=== PATIENT | female | born 1980 | race African-American/Black ===

== ENCOUNTER 2017-03-14 19:34 | Emergency (ER) | payer OTHER ==
[2017-03-14 19:40] VITALS: BP 113/75
[2017-03-14 19:42] VITALS: BMI 22.2
--- NOTE | 2017-03-14 20:16 | DR.FBACK ---
HPI - Time Seen Time seen: 20:00 - PCP Primary Care Physician: EBEN - Complaint Chief Complaint Doctor Comments: Patient admits to a history of back pain; she is on hydrocodone and muscle relaxants for back. The stomach pain is acute. Denies fever or vomiting. Chief Complaint:: PAIN IN LOWER ABD , LOWER BACK AND RIGHT FLANK FOR THE LAST 2 DAYS., DENIES ANY URINARY ISSUES. CONSTANT PAIN. Self Treatment fo Chief Complaint: MOTRIN AT HOME - Source History Provided: Patient - Mode of Arrival Mode of Arrival: Ambulatory - Timing Onset of Chief Complaint: 03/12/17 PMH - PMH Past Medical History: No Past Surgical History: No Surgical History: Unknown - Family History History of Family Medical Conditions: Yes Family Medical History: Cancer - Social History Type of Tobacco Use: Cigarettes Alcohol Use: None Do you use any recreational Drugs:: No Lives With: Family Lives Where: Home - infectious screening Have you traveled outside the country in the last 6 months?: No Isolation: Standard ROS - Review of Systems Eyes: No Symptoms Reported ENTM: No Symptoms Reported Respiratoy: No Symptoms Reported Cardiovascular: No Symptoms Reported Gastrointestinal/Abdominal: No Symptoms Reported Genitourinary: No Symptoms Reported Neurological: No Symptoms Reported Musculoskeletal: No Symptoms Reported Integumentary: No Symptoms Reported Hematologic/Lymphatic: No Symptoms Reported Endocrine: No Symptoms Reported Psychiatric: No Symptoms Reported All Other Systems: Reviewed and Negative PE - Vitals Vital Signs: Temp Pulse Resp BP Pulse Ox 03/14/17 19:36 98.0 F 75 16 113/75 98 05/08/16 08:40 114/69 - General Limitations: No Limitations General Appearance: Alert, In No Apparent Distress - Head Head Exam: Normal Inspection, Atraumatic - Eyes Eye exam: Normal Appearance, PERRL, EOMI - ENT ENT Exam: Normal Exam - Chest Chest Inspection: Normal Inspection - Respiratory Respiratory Exam: Normal Lung Sounds Bilat Respiratory Exam: Bilateral Clear to Auscultation - Cardiovascular Cardiovascular Exam: Regular Rate, Normal Rhythm - Abdominal Exam Abdominal Exam: Normal Inspection, Normal Bowel Sounds Abdominal Tenderness: negative: RUQ, RLQ, LUQ, LLQ, Epigastrium, Suprapubic, Diffuse, Mild, Moderate, Severe, Other - Genitourinary External Exam: Female: Deferred : Speculum Exam (Female): Deferred : Bimanual Exam (female): Deferred - Extremities Extremities Exam: Normal Inspection, Full ROM - Back Back Exam: Normal Inspection - Neurological Neurological Exam: Alert, Oriented X3, CN II-XII Intact - Psychiatric Psychiatric Exam: Normal Affect - Skin Skin Exam: Warm, Dry, Intact ROR - Labs Reviewed Laboratory Results Reviewed?: Yes (UA: negative) Laboratory: Specimen Type Clean catch urine 03/14/17 20:17 Urine Color Yellow (YELLOW) 03/14/17 20:17 Urine Appearance Clear (CLEAR) 03/14/17 20:17 Urine pH 8.0 (5.0 - 8.0) 03/14/17 20:17 Ur Specific [place] 1.015 (1.000-1.030) 03/14/17 20:17 Urine Protein Negative (NEGATIVE) 03/14/17 20:17 Urine Glucose (UA) Negative (NEGATIVE) 03/14/17 20:17 Urine Ketones Negative (NEGATIVE) 03/14/17 20:17 Urine Occult Blood Negative (NEGATIVE) 03/14/17 20:17 Urine Nitrite Negative (NEGATIVE) 03/14/17 20:17 Urine Bilirubin Negative (NEGATIVE) 03/14/17 20:17 Urine Urobilinogen Normal (NORMAL) 03/14/17 20:17 Ur Leukocyte Esterase Negative (NEGATIVE) 03/14/17 20:17 Urine RBC None seen /HPF (NEGATIVE) 03/14/17 20:17 Urine WBC 0-3 /HPF (NEGATIVE) 03/14/17 20:17 Ur Squamous Epith Cells Few /HPF (NEGATIVE) 03/14/17 20:17 Urine Bacteria Trace /HPF (NEGATIVE) 03/14/17 20:17 Ur Culture Indicated? No/not indicated 03/14/17 20:17 - XRAY XRAY Interpreted by: Radiologist (KUB: negative) - Diagnosis Discharge Problem: Abdominal pain Qualifiers: Abdominal location: lower abdomen, unspecified Qualified Code(s): R10.30 - Lower abdominal pain, unspecified - Discharge Plan Condition: Stable - Follow ups/Referrals Follow ups/Referrals: Rosario TREADWELL [Primary Care Provider] - 3 days - Instructions
[2017-03-14 20:28] LABS: BILIRUBIN,URINE NEGATIVE (NEGATIVE); BLOOD/HEMOGLOBIN,URINE NEGATIVE (NEGATIVE); GLUCOSE, URINE NEGATIVE (NEGATIVE); KETONES,URINE NEGATIVE (NEGATIVE); LEUKOCYTE ESTERASE ,URINE NEGATIVE (NEGATIVE); NITRITES,URINE NEGATIVE (NEGATIVE); PROTEIN,URINE NEGATIVE (NEGATIVE); UROBILINOGEN,URINE NORMAL (NORMAL)
[2017-03-14 20:33] LABS: APPEARANCE,URINE CLEAR (CLEAR); BACTERIA,URINE TRACE /HPF (NEGATIVE); COLOR,URINE YELLOW (YELLOW); RBC,URINE NONE SEEN /HPF (NEGATIVE); SQUAMOUS EPITHELIAL CELL,UR FEW /HPF (NEGATIVE)
--- NOTE | 2017-03-14 21:02 | RAD ---
HISTORY: 36-year-old female with abdominal pain and right flank pain for 2 days. Study: Single frontal view of the abdomen. Comparison: None. Findings: Evaluation of the abdomen demonstrates a nonobstructive bowel gas pattern with gas and stool through out the colon. No radiographic evidence of free intraperitoneal air. Right-sided pelvic phlebolith. IUD overlies the pelvis. No pathological soft tissue mass or calcification can be observed. The bon y structures are grossly intact. A right nipple ring. IMPRESSION: 1. No evidence for acute abdominal pathology identified. Reported By:
== END 2017-03-14 21:27 | disposition home or self-care (01) ==
LOC: ER 19:50
DX: R10.84 Generalized abdominal pain (principal)
CPT/HCPCS: 74000; 81001; 99282; 99283